=== PATIENT | female | born 1995 | race Hispanic/Latino ===

== ENCOUNTER 2018-08-06 18:13 | Emergency (ER) | payer BC ==
[2018-08-06 18:47] VITALS: BP 135/89; PULSE 91; RESP 16; TEMP 99.1; O2SAT 100
[2018-08-06 20:24] LABS: BASO % 0.4 % (0.0-2.0); EOS # 0.1 K/uL (0.0-0.7); EOS % 0.7 % (0.0-4.0); HEMOGLOBIN 12.9 g/dL (12.0-16.0); LYMPH # 2.2 K/uL (1.0-4.3); LYMPH % 23.7 % (20.0-40.0); MEAN CELL VOLUME 90.1 fl (81.0-99.0); MEAN CORPUSCULAR HEMOGLOBIN 30.2 pg (27.0-31.0); MEAN CORPUSCULAR HGB CONC 33.5 g/dL (33.0-37.0); MEAN PLATELET VOLUME 8.1 fl (7.2-11.7); MONO # 0.5 K/uL (0.0-0.8); MONO % 5.8 % (0.0-10.0); NEUT # 6.4 K/uL (1.8-7.0); NEUT % 69.4 % (50.0-75.0); RBC 4.29 Mil/uL (3.80-5.20); RED CELL DISTRIBUTION WIDTH 12.6 % (11.5-14.5); WHITE BLOOD COUNT 9.2 K/uL (4.8-10.8)
[2018-08-06 20:32] LABS: SQUAMOUS EPITHIAL 2 /hpf (0-5); URINE BILIRUBIN NEGATIVE (NEGATIVE); URINE BLOOD MODERATE (NEGATIVE); URINE CLARITY CLEAR (Clear); URINE COLOR YELLOW (YELLOW); URINE GLUCOSE (UA) NEG (NEGATIVE); URINE LEUKOCYTE ESTERASE NEG Leu/uL (Negative); URINE PROTEIN NEGATIVE (NEGATIVE); URINE UROBILINOGEN 0.2-1.0 mg/dL (0.2-1.0)
[2018-08-06 20:34] LABS: BLOOD UREA NITROGEN 15 mg/dl (7-17); CALCIUM 9.6 mg/dL (8.4-10.2); GFR NON-AFRICAN AMERICAN > 60
--- NOTE | 2018-08-06 20:54 | ED PDOC ---
HPI: Abdomen Time Seen by Provider: 08/06/18 19:15 Chief Complaint (Nursing): Abdominal Pain Chief Complaint (Provider): Abdominal Pain History Per: Patient History/Exam Limitations: no limitations Onset/Duration Of Symptoms: Days Current Symptoms Are (Timing): Still Present Associated Symptoms: denies: Fever, Chills, Nausea, Vomiting Additional Complaint(s): Samara Sorensen is a 22 year old female with no past medical history who is presenting to the ED with complaints of abdominal pain and vaginal bleeding. Patient states that 10 days ago she took misoprostol for an elective and states that she has been having abdominal pain daily. She admits that the vaginal bleeding has significantly improved but is still having pain. Patient reports that she was referred to the ED by [facility] for evaluation. She denies any fevers, chills, nausea, or vomiting. PMD: none provided Abnormal Vaginal Bleeding: Yes Past Medical History Reviewed: Historical Data, Nursing Documentation, Vital Signs Vital Signs: Last Vital Signs Temp 99.1 F 08/06/18 18:47 Pulse 91 H 08/06/18 18:47 Resp 16 08/06/18 18:47 BP 135/89 08/06/18 18:47 Pulse Ox 100 08/06/18 18:47 - Medical History PMH: No Chronic Diseases - Surgical History Surgical History: No Surg Hx - Family History Family History: States: Unknown Family Hx - Social History Current smoker - smoking cessation education provided: No Alcohol: None Drugs: Denies - Home Medications Home Medications: Ambulatory Orders Medication Instructions Recorded Ibuprofen [Motrin Tab] 800 mg PO Q6 #30 tab 08/06/18 - Allergies Allergies/Adverse Reactions: Allergies Allergy/AdvReac Type Severity Reaction Status Date / Time No Known Allergies Allergy Verified 08/06/18 18:45 Review of Systems ROS Statement: Except As Marked, All Systems Reviewed And Found Negative Constitutional: Negative for: Fever, Chills Gastrointestinal: Positive for: Abdominal Pain. Negative for: Nausea, Vomiting Genitourinary Female: Positive for: Vaginal Bleeding Physical Exam - Reviewed Nursing Documentation Reviewed: Yes Vital Signs Reviewed: Yes - Physical Exam Appears: Positive for: Non-toxic, No Acute Distress Head Exam: Positive for: ATRAUMATIC, NORMAL INSPECTION, NORMOCEPHALIC Skin: Positive for: Normal Color, Warm, DRY Eye Exam: Positive for: Normal appearance Cardiovascular/Chest: Positive for: Regular Rate, Rhythm. Negative for: Murmur Respiratory: Positive for: Normal Breath Sounds. Negative for: Respiratory Distress Gastrointestinal/Abdominal: Positive for: Soft, Tenderness (tenderness bilateral lower quadrants of abdomen ). Negative for: Guarding, Rebound Back: Positive for: Normal Inspection. Negative for: L CVA Tenderness, R CVA Tenderness, Vertebral Tenderness Extremity: Positive for: Normal ROM. Negative for: Deformity, Swelling Neurologic/Psych: Positive for: Alert, Oriented. Negative for: Motor/Sensory Deficits - Laboratory Results Result Diagrams: 08/06/18 19:51 08/06/18 20:17 Lab Results: Urine Color Yellow (YELLOW) 08/06/18 19:57 Urine Clarity Clear (Clear) 08/06/18 19:57 Urine pH 6.0 (5.0-8.0) 08/06/18 19:57 Ur Specific [place] 1.020 (1.003-1.030) 08/06/18 19:57 Urine Protein Negative mg/dL (NEGATIVE) 08/06/18 19:57 Urine Glucose (UA) Neg mg/dL (NEGATIVE) 08/06/18 19:57 Urine Ketones Negative mg/dL (NEGATIVE) 08/06/18 19:57 Urine Blood Moderate (NEGATIVE) 08/06/18 19:57 Urine Nitrate Negative (NEGATIVE) 08/06/18 19:57 Urine Bilirubin Negative (NEGATIVE) 08/06/18 19:57 Urine Urobilinogen 0.2-1.0 mg/dL (0.2-1.0) 08/06/18 19:57 Ur Leukocyte Esterase Neg Doc/uL (Negative) 08/06/18 19:57 Urine RBC (Auto) 2 /hpf (0-3) 08/06/18 19:57 Urine Microscopic WBC 1 /hpf (0-5) 08/06/18 19:57 Ur Squamous Epith Cells 2 /hpf (0-5) 08/06/18 19:57 - ECG O2 Sat by Pulse Oximetry: 100 (RA) Pulse Ox Interpretation: Normal Medical Decision Making Medical Decision Making: Time: 19:51 A/P: 22 year old female with lower abdominal pain and resolving vaginal bleeding after taking misoprostol --Well appearing, non-toxic, with stable vital signs --Possible failed vs. side effects of misoprostol Will order: --BMP --Beta-HCG, Quantitative --Toradol 15 mg IVP --Urinalysis --Transvaginal ultrasound 930PM EXAM: US Pelvis, Complete Transvaginal and Transabdominal COMPARISON: None provided. CLINICAL HISTORY: Bleeding TECHNIQUE: Transvaginal and transabdominal pelvic ultrasound (complete) with image documentation. FINDINGS: ENDOMETRIUM: The endometrium is thickened measuring up to 1.0 cm and heterogeneous in echotexture. The possibility of some retained products of conception cannot be excluded. UTERUS/CERVIX: The uterus appears within normal limits. No uterine fibroid or other mass evident. RIGHT OVARY: Normal Doppler flow. No abnormal mass. A 1.1 x 1.0 x 1.1 cm simple cyst is noted within the right ovary. LEFT OVARY: Normal Doppler flow. No abnormal mass. FREE FLUID: No free fluid. IMPRESSION: 1. Thickening of the endometrium up to 1.0 cm and heterogeneity are noted. The possibility of retained products of conception cannot be excluded. 2. A 1.1 x 1.0 cm right ovarian simple cyst is noted. Electronically signed on Aug 06, 2018 9:08:20 PM EST by: Juve Natarajan M.D., TARA Certified By [facility] Trained MRI and CT Specialist --Patient well appearing, states she's feeling well --Results given, reassured patient of unlikelihood of serious infection --Advised patient to continue NSAIDs and followup with [facility] ---- Scribe Attestation: Documented by Yahaira Diego, acting as a scribe for Arley Thakur MD. Provider Scribe Attestation: All medical record entries made by the Scribe were at my direction and personally dictated by me. I have reviewed the chart and agree that the record accurately reflects my personal performance of the history, physical exam, medical decision making, and the department course for this patient. I have also personally directed, reviewed, and agree with the discharge instructions and disposition. Disposition - Clinical Impression Clinical Impression: Miscarriage - Disposition Referrals: [facility] [Outside] Disposition: Routine/Home Disposition Time: 21:30 Condition: STABLE Prescriptions: Ibuprofen [Motrin Tab] 800 mg PO Q6 #30 tab Instructions: Miscarriage Forms: [facility] (Portuguese)
--- NOTE | 2018-08-07 11:34 | US ---
Date of service: 08/06/2018 HISTORY: 7wks preg 10 days ago, took misoprostol LMP 05/30/2018. Beta HCG results are unknown. COMPARISON: None available. TECHNIQUE: Transvaginal only. Real -time technique with 2D, duplex and color Doppler FINDINGS: UTERUS: Measures cm. Normal in size and appearance. No fibroid or other mass lesion seen. ENDOMETRIUM: Measures 9.6 mm in diameter. Hypervascular endometrium. Focal soft tissue mass measures 5.3 x 7.1 mm within the endometrial canal. Retained products of conception likely. CERVIX: No cervical abnormality identified. Closed cervix measures 3.63 cm. RIGHT OVARY: Measures 1.9 x 3 x 2.8 cm. No solid mass. Normal flow. Simple cyst measures 10 x 11 x 11 mm. LEFT OVARY: Measures 1.8 x 1.3 x 2.3 cm. No solid mass. Normal flow. FREE FLUID: No significant free fluid noted. OTHER FINDINGS: None. IMPRESSION: Thickened hypervascular endometrium with polypoid lesion within the endometrium 7 mm. Retained products of conception likely. Concordant findings (preliminary report) provided by [facility].
== END 2018-08-06 22:02 | disposition home or self-care (01) ==
LOC: H.ER 18:13
DX: O03.9 Complete or unspecified spontaneous abortion without complication (principal); Z3A.01 Less than 8 weeks gestation of pregnancy; R93.89 Abnormal findings on diagnostic imaging of other specified body structures
CPT/HCPCS: 76830; 80048; 81003; 81025; 84702; 85025; 96374; 99282; J1885